=== PATIENT | female | born 1970 | race Two or more races ===

== ENCOUNTER 2018-08-27 18:00 | Emergency (ER) | payer BC, SELFPAY ==
[~2018-08-27] VITALS: Ht 162.6 cm; Wt 107.0 kg
[2018-08-27 18:27] LABS: BASOPHILS # (AUTO) 0.05 x10^3/uL (0-0.1); BASOPHILS % (AUTO) 0 % (0-1); EOSINOPHILS # (AUTO) 0.04 x10^3/uL (0-0.4); EOSINOPHILS % (AUTO) 0 % (1-7); LYMPHOCYTES # (AUTO) 3.07 x10^3/uL (1-3.4); LYMPHOCYTES % (AUTO) 24 % (22-44); MD NO; MEAN CORPUSCULAR HEMOGLOBIN 28.7 pg (27.0-34.8); MEAN CORPUSCULAR HGB CONC 34.1 g/dL (32.4-35.8); MEAN CORPUSCULAR VOLUME 84.2 fL (80-100); MONOCYTES # (AUTO) 0.96 x10^3/uL (0.2-0.8); MONOCYTES % (AUTO) 8 % (2-9); NEUTROPHILS # (AUTO) 8.66 x10^3/uL (1.8-6.8); NEUTROPHILS % (AUTO) 68 % (42-75); PLATELET COUNT 336 x10^3/uL (130-400); RED BLOOD COUNT 5.08 x10^6/uL (3.82-5.3); RED CELL DISTRIBUTION WIDTH 13.6 % (9.6-15.2)
[2018-08-27] MEDS ORDERED: ASPIRIN 81 MG TABLET CHEW ONE (18:27)
[2018-08-27] MEDS ORDERED: ASPIRIN 81 MG TABLET CHEW PO ONE (18:30)
[2018-08-27] MEDS ORDERED: SODIUM CHLORIDE FLUSH 10ML SYR IVF ONE (18:30)
--- NOTE | 2018-08-27 18:30 | NUR ---
Assumed care of patient. C/O intermittent epigastric pain, nausea, RAMEY, and dizziness x 2 days[address] Pl[address] on NIBP, pulse ox and color television console monitor. Will continue to monitor.
[2018-08-27 18:39] LABS: ALBUMIN 3.3 g/dL (3.4-5.0); ANION GAP 9 mmol/L (5-15); CALCIUM 8.6 mg/dL (8.5-10.1); CHLORIDE 106 mmol/L (98-107); CREATININE 0.64 mg/dL (0.55-1.02)
[2018-08-27 18:43] LABS: TROPONIN I < 0.015 ng/mL (0.000-0.045)
[2018-08-27 19:37] VITALS: BP 185/100
--- NOTE | 2018-08-27 19:37 | NUR ---
Patient/Caregiver given discharge instructions and they have confirmed that they understand the instructions. Patient ambulatory with steady gait.
== END 2018-08-27 19:38 | disposition home or self-care (01) ==
LOC: ED 19:20
DX: R07.9 Chest pain, unspecified (principal); I10 Essential (primary) hypertension; K08.89 Other specified disorders of teeth and supporting structures; K29.00 Acute gastritis without bleeding
CPT/HCPCS: 36415; 71045; 80048; 82040; 83880; 84484; 85025; 93005; 99284

== ENCOUNTER → 2018-11-05 | Outpatient (CLI) | payer BC | END | disposition home or self-care (01) | LOC: CFH 10:18 | PROVIDERS: ATTEND Nurse Practitioner Family | DX: Z12.31 Encounter for screening mammogram for malignant neoplasm of breast (principal); R16.0 Hepatomegaly, not elsewhere classified; R10.10 Upper abdominal pain, unspecified | CPT/HCPCS: 76700; 77063; 77067 ==

== ENCOUNTER → 2018-11-19 | Outpatient (CLI) | payer BC | END | disposition home or self-care (01) | LOC: CFH 14:48 | PROVIDERS: ATTEND Nurse Practitioner Family | DX: N63.22 Unspecified lump in the left breast, upper inner quadrant (principal) | CPT/HCPCS: 77065 ==

== ENCOUNTER → 2018-11-29 | Outpatient (CLI) | payer BC ==
[~2018-11-29] MED LIST: LIDOCAINE 1%, 20ML ONE; LIDOCAINE 1%-EPI 1:100K, 20ML ONE; SODIUM BICARBONATE 4.0%, 5ML ONE
== END | disposition home or self-care (01) ==
LOC: CFH 10:10
PROVIDERS: ATTEND Nurse Practitioner Family
DX: D24.2 Benign neoplasm of left breast (principal)
CPT/HCPCS: 19083; 88305; J3490

== ENCOUNTER → 2020-01-03 | Outpatient (CLI) | payer BC | END | disposition home or self-care (01) | LOC: CFH 14:40 | PROVIDERS: ATTEND Genetic Counselor, MS | DX: Z12.31 Encounter for screening mammogram for malignant neoplasm of breast (principal); N63.20 Unspecified lump in the left breast, unspecified quadrant; N63.10 Unspecified lump in the right breast, unspecified quadrant | CPT/HCPCS: 77063; 77067 ==